=== PATIENT | male | born 1945 ===

== ENCOUNTER 2019-06-25 06:41 | Day surgery (SDC) | payer OTHER ==
[~2019-06-25] VITALS: Ht 193 cm; Wt 91.4 kg
[~2019-06-25 06:41] MED LIST: VITAMIN D31000 UNI3 PO; WARF5 PO; ZESTORETIC 20-121 EA PO; Zocor20 MG PO
--- NOTE | 2019-06-25 07:01 | NUR ---
Ambulatory in Day Surgery. ADMISSION STARTED TO UNIT REPORTS NPO THIS AM.
--- NOTE | 2019-06-25 09:27 | NUR ---
06/25/19 0927 Charli Lemus CATH PLACED PER CHELSEY VELEZ
--- NOTE | 2019-06-25 12:22 | NUR ---
Patient up to Ambulate independently. Gait steady. Discharge instructions reviewed with patient. Patient verbalizes understanding. Copy given to patient to take home. Dressing to procedure site clean, dry, intact with no visible drainage, swelling, erythema or bruising noted. Patient States Post-Procedure ride home has been arranged. Discharged via wheelchair to private car for ride home.
[2019-08-21] MEDS ORDERED: Lisinopril-Hct1 EAC4 PO (14:06)
== END 2019-06-25 12:24 | disposition home or self-care (01) ==
LOC: ORSCMMR 06:41 → ORD 08:30 → ORSCMMR 12:24
PROVIDERS: Surgery
PROC: 8E0W4CZ Robotic Assisted Procedure of Trunk Region, Percutaneous Endoscopic Approach (ICD-10-PCS; principal; 2019-06-25 08:30)
PROC: 0YUA4JZ Supplement Bilateral Inguinal Region with Synthetic Substitute, Percutaneous Endoscopic Approach (ICD-10-PCS; principal; 2019-06-25 08:30)
DX: K40.20 Bilateral inguinal hernia, without obstruction or gangrene, not specified as recurrent (principal); I10 Essential (primary) hypertension; I48.91 Unspecified atrial fibrillation; E78.00 Pure hypercholesterolemia, unspecified; Z79.01 Long term (current) use of anticoagulants; Z79.899 Other long term (current) drug therapy
CPT/HCPCS: 49650; S2900; A9270-GY; C1781; J0690; J1100; J1885; J2250; J2405; J3010; J7120

== ENCOUNTER 2019-09-01 07:29 | Day surgery (SDC) | payer OTHER ==
[~2019-09-01] VITALS: Ht 193 cm; Wt 89.7 kg
[~2019-09-01 07:29] MED LIST changes: +Lisinopril-Hct1 EAC4 PO
== END 2019-09-01 10:29 | disposition home or self-care (01) ==
LOC: ORSCSDS 07:29
PROVIDERS: Student in an Organized Health Care Education/Training Program
PROC: 0DBK8ZX Excision of Ascending Colon, Via Natural or Artificial Opening Endoscopic, Diagnostic (ICD-10-PCS; principal; 2019-09-01 09:00)
PROC: 0DBH8ZX Excision of Cecum, Via Natural or Artificial Opening Endoscopic, Diagnostic (ICD-10-PCS; principal; 2019-09-01 09:00)
PROC: 0DBL8ZX Excision of Transverse Colon, Via Natural or Artificial Opening Endoscopic, Diagnostic (ICD-10-PCS; principal; 2019-09-01 09:00)
PROC: 0DBN8ZX Excision of Sigmoid Colon, Via Natural or Artificial Opening Endoscopic, Diagnostic (ICD-10-PCS; principal; 2019-09-01 09:00)
DX: Z12.11 Encounter for screening for malignant neoplasm of colon (principal); Z86.010 Personal history of colon polyps; K63.5 Polyp of colon; D12.0 Benign neoplasm of cecum; D12.3 Benign neoplasm of transverse colon; K57.30 Diverticulosis of large intestine without perforation or abscess without bleeding; K64.8 Other hemorrhoids; E78.5 Hyperlipidemia, unspecified; I10 Essential (primary) hypertension; I48.91 Unspecified atrial fibrillation; Z79.01 Long term (current) use of anticoagulants; Z79.899 Other long term (current) drug therapy
CPT/HCPCS: 88305; J2704; J7120